=== PATIENT | female | born 1955 | race Caucasian/White ===

== ENCOUNTER → 2017-05-22 | Outpatient (CLI) | payer OTHER ==
[~2017-05-22] MED LIST: ALBU.083IS IH; ALBU90OI INH; AZIT250 PO; CITA20 PO; CYCL10 PO; HYDACE5 PO; IBUP800 PO; LISI20 PO; LOVA40; METF500 PO; NAPR500 PO; OMEP40CA12 PO; PRED20 PO; SIMV80 PO; VENL25 PO
[2017-05-22 13:55] LABS: Bilirubin, Urine Neg (Neg); Blood, Urine Neg (Neg); Glucose Qualitative, Urine Neg (Neg); Ketones, Urine Neg (Neg); Leukocyte Esterase, Urine Neg (Neg); Nitrite, Urine Neg (Neg); Protein, Urine Neg (Neg); Urobilinogen, Urine NORM (Normal)
[2017-05-22 14:00] LABS: Appearance, Urine Clear (Clear); Color, Urine Pale Yellow (P-Yellow)
== END ==
LOC: LAB 11:15
PROVIDERS: Nurse Practitioner Family
DX: N39.0 Urinary tract infection, site not specified (principal)
CPT/HCPCS: 81003

== ENCOUNTER → 2018-10-17 | Outpatient (CLI) | payer OTHER ==
[~2018-10-17] MED LIST changes: +Aspirin EC81 MG PO; +CHOL10002 PO; +ESCI10 PO; +METO100ER PO; +OMEPRAZOLE MAGN20 MG PO; +ZYRTEC10 M1 PO; +Zestril40 MG PO
[2018-10-21 15:07] LABS: HPV 16 Negative (Negative); HPV 18 Negative (Negative); HPV OTHER HR TYPES Negative (Negative)
== END ==
LOC: LAB SHORT 13:38 → LAB 13:38
PROVIDERS: Registered Nurse Community Health
DX: Z12.4 Encounter for screening for malignant neoplasm of cervix (principal)
CPT/HCPCS: 87624; G0123

== ENCOUNTER 2019-09-17 08:12 | Day surgery (SDC) | payer OTHER ==
--- NOTE | 2019-09-17 08:54 | NUR ---
PT ADMITTED TO [facility]. AGREES WITH PLANNED PROCEDURE. REPORT TO CALI JUARES RN.
--- NOTE | 2019-09-17 09:39 | NUR ---
CTA COMPLETE. Discharge instructions reviewed with patient. Patient verbalizes understanding. Copy given to patient to take home. PT AMBULATED OUT OF DEPARTMENT.
== END 2019-09-17 09:35 | disposition home or self-care (01) ==
LOC: CT 08:12 → ORD 08:12 → CT 09:00 → ORD 09:35
DX: I25.10 Atherosclerotic heart disease of native coronary artery without angina pectoris (principal); E78.5 Hyperlipidemia, unspecified; I10 Essential (primary) hypertension; I45.10 Unspecified right bundle-branch block; K21.9 Gastro-esophageal reflux disease without esophagitis; E78.00 Pure hypercholesterolemia, unspecified; E11.9 Type 2 diabetes mellitus without complications; F41.9 Anxiety disorder, unspecified; F32.9 Major depressive disorder, single episode, unspecified; Z79.82 Long term (current) use of aspirin; Z79.899 Other long term (current) drug therapy; F17.210 Nicotine dependence, cigarettes, uncomplicated
CPT/HCPCS: 75574; Q9967

== ENCOUNTER 2020-02-18 10:48 | Emergency (ER) | payer OTHER ==
[~2020-02-18] VITALS: Ht 170.2 cm; Wt 91.2 kg
== END 2020-02-18 12:10 | disposition home or self-care (01) ==
LOC: ER 10:48
DX: S29.011A Strain of muscle and tendon of front wall of thorax, initial encounter (principal); I10 Essential (primary) hypertension; F17.200 Nicotine dependence, unspecified, uncomplicated; Z88.5 Allergy status to narcotic agent; Z79.899 Other long term (current) drug therapy; Z79.82 Long term (current) use of aspirin; W17.89XA Other fall from one level to another, initial encounter; Y92.89 Other specified places as the place of occurrence of the external cause
CPT/HCPCS: 71101; 93005; 93010; 99283-25

== ENCOUNTER 2020-10-04 07:30 | Day surgery (SDC) | payer OTHER ==
[2020-10-05] MEDS ORDERED: ATORVASTATIN CA40 M1 (11:02)
[2020-10-05] MEDS ORDERED: CYCL10 PO (11:03)
[2020-10-05] MEDS ORDERED: CITA20 (11:03)
[2020-10-05] MEDS ORDERED: AMLO5 PO (11:03)
== END 2020-10-04 22:53 | disposition home or self-care (01) ==
LOC: MOI US 07:30
DX: C50.911 Malignant neoplasm of unspecified site of right female breast (principal)
CPT/HCPCS: 19285; 77065; A4648

== ENCOUNTER 2020-10-12 08:52 | Day surgery (SDC) | payer OTHER ==
[~2020-10-12] VITALS: Ht 170.2 cm; Wt 92.5 kg
[~2020-10-12 08:52] MED LIST changes: +AMLO5 PO; +ATORVASTATIN CA40 M1; +CITA20
--- NOTE | 2020-10-12 11:00 | NUR ---
10/12/20 1059 JORGE FRITZ PT UPDATED THAT THERE IS A DELAY, PREVIOUS CASE RUNNING LONG. PT COMFORTABLE AND HAS NO COMPLAINTS AT THIS TIME.
--- NOTE | 2020-10-12 14:34 | NUR ---
10/12/20 1434 Mariya Wong OXYGEN SATURATIONS 88-91%, PLACED ON NRB MASK AT 10L/MIN, OXYGEN SATURATIONS 97%-100% ON NRB. WILL CONTINUE TO MONITOR. PAIN RATED 8/10, GIVING IV PAIN MEDS PER DR. TANG'S ORDERS. WILL MONITOR.
--- NOTE | 2020-10-12 15:39 | NUR ---
10/12/20 1539 Mariya Wong OXYGEN SATURATIONS 89-91% ON ROOM AIR. PLACED ON OXYGEN AT 2L/MIN VIA NC, OXYGEN SATURATIONS GREATER THAN 93% ON 2L. ENCOURAGED TO DEEP BREATH AND COUGH. OXYGEN WEANED OFF OF PT TO ROOM AIR. SATURATIONS 92-94% ON ROOM AIR. PT INSTRUCTED ON INCENTIVE SPIROMETER AND RETURNED DEMONSTRATION. INSTRUCTED TO USE 10 TIMES PER HOUR WHILE AWAKE. PT VERBALIZES UNDERSTANDING AND DENIES QUESTIONS.
== END 2020-10-12 15:52 | disposition home or self-care (01) ==
LOC: ORSCSDS 08:52 → NM 09:00 → ORSCSDS 10:00
PROVIDERS: Surgery
PROC: 0HBT0ZZ Excision of Right Breast, Open Approach (ICD-10-PCS; principal; 2020-10-12 10:45)
PROC: 0HBT0ZX Excision of Right Breast, Open Approach, Diagnostic (ICD-10-PCS; principal; 2020-10-12 10:45)
DX: C50.911 Malignant neoplasm of unspecified site of right female breast (principal); I10 Essential (primary) hypertension; J45.909 Unspecified asthma, uncomplicated; F41.9 Anxiety disorder, unspecified; F43.10 Post-traumatic stress disorder, unspecified; G47.33 Obstructive sleep apnea (adult) (pediatric); E66.9 Obesity, unspecified; Z68.31 Body mass index [BMI] 31.0-31.9, adult; F17.210 Nicotine dependence, cigarettes, uncomplicated; Z79.899 Other long term (current) drug therapy
CPT/HCPCS: 38792; 76098; 82947; 88307; 88342; A9270; A9520; J0690; J1100; J1885; J2001; J2250; J2405; J2704; J3010; J7120; Q9968

== ENCOUNTER → 2021-02-15 | Outpatient (CLI) | payer OTHER | END | disposition home or self-care (01) | LOC: LAB 11:15 → LAB SHORT 11:15 | DX: R30.9 Painful micturition, unspecified (principal) | CPT/HCPCS: 87086 ==

== ENCOUNTER → 2022-01-26 | Outpatient (CLI) | payer OTHER | END | disposition home or self-care (01) | LOC: LAB SHORT 18:39 → LAB 18:39 | DX: N30.00 Acute cystitis without hematuria (principal) | CPT/HCPCS: 87086 ==

== ENCOUNTER 2022-10-02 07:43 | Day surgery (SDC) | payer OTHER ==
[~2022-10-02] VITALS: Ht 167.6 cm; Wt 94.1 kg
[2022-10-02] VITALS (9 sets, daily range): BP systolic 89–148; BP diastolic 60–88
[~2022-10-02 07:43] MED LIST changes: +ANASTROZOLE1 M7 PO; -ATORVASTATIN CA40 M1; +ATORVASTATIN CA40 M1 PO; +CELE100 PO; +CENTRUM SILVER1 EAC2 PO; +CINNAMON EXTRA500 MG PO; -CITA20; +Calcium Carbon500 MG PO; +DICLOFENAC SOD100 GM TOP; +FLONASE SENSIM5.9 M1; +PREG50 PO
--- NOTE | 2022-10-02 08:51 | NUR ---
Ambulatory in Day Surgery. History, Chart, Medications and Allergies reviewed before start of procedure. Lungs clear T/O to Auscultation. Patient confirms NPO status and agrees with scheduled surgery. Pre-Op teaching done. Pt verbalizes understanding. Patient States Post-Procedure ride home has been arranged. PT BELONGINGS PLACED [facility]ERNEATH [facility]AFE[facility].
--- NOTE | 2022-10-02 11:01 | NUR ---
Patient up to Ambulate independently. Gait steady. Discharge instructions reviewed with patient. Patient verbalizes understanding. Copy given to patient to take home. Patient States Post-Procedure ride home has been arranged. Discharged via wheelchair to private car for ride home.
== END 2022-10-02 11:01 | disposition home or self-care (01) ==
LOC: ORSCMMR 07:43 → ORD 09:00 → ORSCMMR 09:00
PROVIDERS: Surgery
PROC: 0HB5XZX Excision of Chest Skin, External Approach, Diagnostic (ICD-10-PCS; principal; 2022-10-02 09:00)
DX: L98.9 Disorder of the skin and subcutaneous tissue, unspecified (principal); Z85.3 Personal history of malignant neoplasm of breast; E11.9 Type 2 diabetes mellitus without complications; F41.9 Anxiety disorder, unspecified; F32.A Depression, unspecified; F17.210 Nicotine dependence, cigarettes, uncomplicated; J45.909 Unspecified asthma, uncomplicated; G47.33 Obstructive sleep apnea (adult) (pediatric); K21.9 Gastro-esophageal reflux disease without esophagitis; G62.9 Polyneuropathy, unspecified; I10 Essential (primary) hypertension; Z79.82 Long term (current) use of aspirin; Z79.899 Other long term (current) drug therapy
CPT/HCPCS: 82947; 88305; J0690; J2250; J2704; J2795; J3010; J7120

== ENCOUNTER → 2024-03-26 | Outpatient (CLI) | payer OTHER ==
[2024-03-26 18:59] LABS: Creatinine, Urine Random 47.5 mg/dL (27.00-270.00)
[2024-03-26 19:02] LABS: Microalb/Creat Ratio UR, Rand 12.421 mg/g (0.000-30.000); Microalbumin, Random Urine 5.9 mg/L (0.000-20.000)
== END ==
LOC: LAB 15:20 → LAB SHORT 15:20
PROVIDERS: Family Medicine
DX: E11.42 Type 2 diabetes mellitus with diabetic polyneuropathy (principal)
CPT/HCPCS: 82043; 82570

== ENCOUNTER 2025-01-06 13:13 | Day surgery (SDC) | payer OTHER ==
[~2025-01-06] VITALS: Ht 170.2 cm; Wt 81.0 kg
[2025-01-06] VITALS (33 sets, daily range): BP systolic 100–175; BP diastolic 42–121
[~2025-01-06 13:13] MED LIST changes: +LETR2.5 PO; +MIRABEGRON ER50 MG PO; +OMEP20ER PO; +Percocet 5-3251 EACH PO; +VENL75ER PO; +ZYRTEC10 M2 PO
[2025-01-06] MEDS ORDERED: OXYC5 PO (13:43)
--- NOTE | 2025-01-06 14:11 | NUR ---
Ambulatory in Day Surgery. History, Chart, Medications and Allergies reviewed before start of procedure. Lungs clear T/O to Auscultation. PT REPORTS DRINKING HALF A CUP OF COFFEE W/SUGAR THIS MORNING AT 0830 WITH THE LAST OF HER COLONOSCOPY PREP PILLS. PT CONFIRMS NPO STATUS SINCE THAT TIME. SEDATION RN AND DR TREJO AWARE. Pre-Op teaching done. Pt verbalizes understanding. Patient States Post-Procedure ride home has been arranged.
--- NOTE | 2025-01-06 14:19 | NUR ---
01/06/25 Lakeisha Adam CONFIRMED AND REVIEWED H&P, MEDCICATIONS, ALLERGIES, MEDICAL HISTORY, RESPIRATORY HISTORY, VITAL SIGNS, 3-LEAD EKG, CONSENTS, AND PHYSICIAN ORDERS. PATIENT CONFIRMS NPO STATUS AND AGREES WITH SCHEDULED PROCEDURE. MONITOR INTACT WITH CONTINUOUS PULSE OXIMETRY, CAPNOGRAPHY, 3-LEAD EKG, INTERMITTENT BP. SUPPLEMENTAL O2 TO BE TITRATED THROUGHOUT PROCEDURE TO MAINTAIN O2 SATURATION ABOVE 90%. PATIENT DETERMINED TO BE ASA APPROPRIATE FOR PROPOFOL SEDATION PRIOR TO START OF PROCEDURE BY DR. TREJO.
--- NOTE | 2025-01-06 16:15 | NUR ---
Discharge instructions reviewed with patient. Patient verbalizes understanding. Copy given to patient to take home. Patient up to Ambulate independently. Gait steady. TOLERATED PO. DENIES C/O PAIN OR NAUSEA.
== END 2025-01-06 16:05 | disposition home or self-care (01) ==
LOC: ORSCSDS 13:13 → ORSCMMR 13:17 → ORSCSDS 13:45
PROVIDERS: Surgery
PROC: 0DBM8ZX Excision of Descending Colon, Via Natural or Artificial Opening Endoscopic, Diagnostic (ICD-10-PCS; principal; 2025-01-06 14:15)
PROC: 0DB58ZX Excision of Esophagus, Via Natural or Artificial Opening Endoscopic, Diagnostic (ICD-10-PCS; principal; 2025-01-06 14:15)
PROC: 0DBK8ZX Excision of Ascending Colon, Via Natural or Artificial Opening Endoscopic, Diagnostic (ICD-10-PCS; principal; 2025-01-06 14:15)
PROC: 0DB78ZX Excision of Stomach, Pylorus, Via Natural or Artificial Opening Endoscopic, Diagnostic (ICD-10-PCS; principal; 2025-01-06 14:15)
PROC: 0DBP8ZX Excision of Rectum, Via Natural or Artificial Opening Endoscopic, Diagnostic (ICD-10-PCS; principal; 2025-01-06 14:15)
PROC: 0DBL8ZX Excision of Transverse Colon, Via Natural or Artificial Opening Endoscopic, Diagnostic (ICD-10-PCS; principal; 2025-01-06 14:15)
DX: K21.9 Gastro-esophageal reflux disease without esophagitis (principal); Z12.11 Encounter for screening for malignant neoplasm of colon; Z86.0100 Personal history of colon polyps, unspecified; D12.2 Benign neoplasm of ascending colon; D12.3 Benign neoplasm of transverse colon; D12.4 Benign neoplasm of descending colon; K62.1 Rectal polyp; K29.70 Gastritis, unspecified, without bleeding; F17.210 Nicotine dependence, cigarettes, uncomplicated; I10 Essential (primary) hypertension; Z85.3 Personal history of malignant neoplasm of breast; E11.9 Type 2 diabetes mellitus without complications; G47.33 Obstructive sleep apnea (adult) (pediatric); F41.9 Anxiety disorder, unspecified; F32.A Depression, unspecified; Z79.899 Other long term (current) drug therapy
CPT/HCPCS: 88305; 88342; J2704; J7120